=== PATIENT | female | born 1965 | race Caucasian/White ===

== ENCOUNTER 2019-08-20 17:11 | Emergency (ER) | payer OTHER, SELFPAY ==
--- NOTE | ~2019-08-20 | XR_ITS ---
EXAMINATION: XR chest 2V 08/20/2019 17:48 INDICATION: Chest pain. COPD. PROCEDURE: 2 view chest COMPARISON: Comparison to multiple prior studies sequentially, with oldest reviewed study dated 08/02. FINDINGS: The lungs are clear. The cardiomediastinal silhouette is within normal limits. There are no pleural effusions. There is no pneumothorax suspected. IMPRESSION: 1: NO ACUTE CARDIOPULMONARY DISEASE. Reviewed, dictated and finalized at location A.
[2019-08-20 17:24] VITALS: BP 151/84; PULSE 89; RESP 89; TEMP 37.6; O2SAT 97
--- NOTE | 2019-08-20 17:35 | ED.URI ---
HPI - URI/Sore Throat General Chief Complaint: Upper Respiratory Infection Stated Complaint: CP/SOB Time Seen by Provider: 08/20/19 17:35 Source: patient and RN notes reviewed History of Present Illness HPI Narrative: Patient is a 54-year-old female that presents the urgent care with complaints of acute on chronic shortness of breath. Patient states that she typically gets these symptoms when the weather changes . Patient states that she was given a steroid taper from her PCP recently and the symptoms did not fully go away . States that she was on a 10-day taper and just recently completed the medication. Patient does have a chronic cough but states that she feels this 1 might be different . Patient also reports of intermittent shortness of breath which is not new for her considering her past history of asthma and COPD. Patient states that her PCP sent her to urgent care for follow-up. Patient is currently denying any chest pain. Patient does not have any acute distress noted whatsoever. Patient is not dyspneic or short of breath on assessment. Patient denies any recent exposure to known coronavirus patient and has not currently been out of the country or traveled within the last 2 weeks. Patient aware of the plan of care. Related Data Home Medications Medication Instructions Recorded Confirmed Prilosec 08/20/19 Symbicort 08/20/19 albuterol sulfate 08/20/19 clonazepam 08/20/19 ipratropium bromide 08/20/19 valsartan 08/20/19 Allergies Allergy/AdvReac Type Severity Reaction Status Date / Time fluticasone Allergy Mild HIVES Verified 08/20/19 17:31 salmeterol Allergy Mild HIVES Verified 08/20/19 17:31 Sulfa (Sulfonamide Allergy Mild hives Verified 08/20/19 17:31 Antibiotics) Review of Systems Review of Systems: Narrative: CONSTITUTIONAL: Denies fever, chills, or sweats. EYES: Denies visual changes, redness, or discharge. ENT: Denies rhinorrhea, congestion, sore throat, or otalgia. CARDIOVASCULAR: Denies chest pain, palpitations, or edema. RESPIRATORY: Reports of acute on chronic dyspnea and intermittent cough GASTROINTESTINAL: Denies abdominal pain, nausea, vomiting, or diarrhea. GENITOURINARY: Denies dysuria or hematuria. SKIN: Denies rash or itching. MUSCULOSKELETAL: Denies back pain, joint pain, or myalgia. NEUROLOGIC: Denies headache, numbness, or weakness. All other systems reviewed are negative, except as documented in HPI. PMFSH Social History Social History Gender identity (if verbalized by the patient): Female Comments At the time of my signature, I reviewed and agree with the nursing past medical, surgical, social, and family history. There is no relevant family history pertinent to the patient complaint. Exam Narrative: Exam Narrative: GENERAL: This is a well-nourished, well-developed patient, in no apparent distress. HEAD: normocephalic, atraumatic. EYES: PERRL. Sclera clear/white. Vision is grossly intact. EARS: External ears normal NOSE: External nose normal with no obvious nasal discharge, nares without redness, no rhinorrhea. THROAT: Mucous membranes moist, posterior pharynx clear. NECK: Neck supple CARDIOVASCULAR: Regular rate and rhythm without murmurs, gallops, or rubs. RESPIRATORY: Clear to auscultation. Diminished throughout without any advantageous sounds SKIN: warm, intact with no suspicious lesions or rash, good texture and turgor. NEURO: awake, alert, and oriented to person, place and time. There were no obvious focal neurologic abnormalities. EXTREMITIES: No clubbing, cyanosis, or edema. Course Vital Signs Vital signs: Vital Signs Temperature 99.7 F H 08/20/19 17:24 Pulse Rate 89 08/20/19 17:24 Respiratory Rate 89 H 08/20/19 17:24 Blood Pressure 151/84 H 08/20/19 17:24 Pulse Oximetry 97 08/20/19 17:24 Temperature 99.7 F H 08/20/19 17:24 Pulse Rate 89 08/20/19 17:24 Respiratory Rate 89 H 08/20/19 17:24 Blood Pressure 151/84 H 08/19
== END 2019-08-20 18:00 | disposition home or self-care (01) ==
PROVIDERS: Emergency Provider Nurse Practitioner Family
DX: J44.9 Chronic obstructive pulmonary disease, unspecified (principal); I10 Essential (primary) hypertension; F41.9 Anxiety disorder, unspecified
CPT/HCPCS: 71046; 99213; G0463

== ENCOUNTER 2019-10-01 12:31 | Emergency (ER) | payer OTHER, SELFPAY ==
--- NOTE | ~2019-10-01 | XR_ITS ---
EXAMINATION: XR chest 1V portable DATE: 10/01/2019 13:55 INDICATION: Shortness of breath. TECHNIQUE: A single frontal view of the chest was obtained. COMPARISON: Chest 2 views 08/20/2019 FINDINGS: The chest demonstrates clear lungs without pneumonia, pleural effusion, or pneumothorax. Th e heart size is normal. IMPRESSION: 1. No acute cardiopulmonary disease. Reviewed, dictated and finalized at location E.
--- NOTE | ~2019-10-01 | US_ITS ---
US right upper quadrant DATE: 10/01/2019 13:24 INDICATION: Right upper quadrant abdominal pain, nausea, vomiting TECHNIQUE: Real-time imaging of liver, pancreas, gallbladder areas COMPARISON: None FINDINGS: The pancreas is partially obscured by bowel gas. The pancreatic head, neck and proximal bod y appear normal. No hepatic space occupying mass lesion. Normal hepatopedal portal venous flow direction. No gallstones or gallbladder wall thickening or abnormal pericholecystic fluid collection. Negative sonographic Pittman's sign. The common bile duct measures 4.4 to 5.5 mm, within normal limits. IMPRESSION: Pancreas partially obscured; otherwise negative Reviewed, dictated and finalized at Location A. Reviewed, dictated and finalized at location A.
--- NOTE | ~2019-10-01 | CT_ITS ---
EXAMINATION: CTA chest PE protocol DATE: 10/01/2019 15:34 INDICATION: Shortness of breath and chest pain for 8 days. Cough. TECHNIQUE: Computed tomography angiography (CTA) of the chest was performed with 100 mL Omnipaque-350 intravenous contrast timed to evaluate the pulmonary arteries. Coronal maximum intensity projection 3D-reconstructions were created by the technologist. Automated exposure control and iterative reconst ruction technique were employed. Exam dose: 333.76 mGy-cm total exam DLP. COMPARISON: 10/01/2019 portable AP chest FINDINGS: There is diagnostic contrast enhancement of the pulmonary arteries and no evidence of pulmo nary embolism. No thoracic aortic aneurysm or dissection. No hilar or mediastinal mass lesion or lymphadenopathy. Normal heart size. No pericardial or pleural effusion. Mild emphysematous changes are noted in the lungs. No pulmonary infiltrate or consolidation or suspic ious pulmonary mass lesion is evident. No pneumothorax. Normal adrenal glands. Included upper abdominal structures are unremarkable. Bilateral breast implants are noted, some peripheral calcifications. IMPRESSION: No evidence of pulmonary embolism Mild emphysema Reviewed, dictated and finalized at Location A. Reviewed, dictated and finalized at location A.
[2019-10-01 12:34] VITALS: BP 157/108; PULSE 114; RESP 25; TEMP 37.2; O2SAT 97
[2019-10-01 12:47] VITALS: PULSE 90
--- NOTE | 2019-10-01 12:56 | ECG_ITS ---
Measurements Intervals [place] Rate: 93 P: 75 WI: 154 QRS: 32 QRSD: 66 T: 57 QT: 330 QTc: 411 Interpretive Statements SINUS RHYTHM RSR' IN V1 OR V2, PROBABLY NORMAL VARIANT BASELINE ARTIFACT- I, III, AVL NORMAL ECG Electronically Signed On 10-01-2019 13:04:44 CDT by Lele Abreu D.O.
--- NOTE | 2019-10-01 12:57 | ED.SOB ---
HPI - SOB/Dyspnea General Chief Complaint: Shortness of Breath/Dyspnea Stated Complaint: increasing and worsening shortness of breath. Time Seen by Provider: 10/01/19 12:42 Source: patient Mode of arrival: ambulatory Limitations: no limitations History of Present Illness HPI Narrative: This patient is a 54 year old female with history of COPD who presents for evaluation of shortness of breath. She states over the past 2 weeks she has had worsening shortness of breath. She thinks it is different from her COPD. She reports shortness of breath when she lays down and intermittent shortness of breath at rest. She also reports intermittent pain to right lower rib that last minutes. She states this pain is not consistent and it is very sporadic. She denies having any pain now. She also states her ankles appear to be swollen. She called her PCP who told her to come to ER for evaluation of CHF or PE. MD elicited complaint: shortness of breath Related Data Home Medications Medication Instructions Recorded Confirmed budesonide-formoterol [Symbicort] 2 puff INHALATION BID 10/01/19 clonazepam 0.5 mg PO PRN PRN 10/01/19 ipratropium-albuterol 3 ml INHALATION PRN 10/01/19 omeprazole 20 mg PO DAILY 10/01/19 valsartan-hydrochlorothiazide 0.5 tablet PO DAILY 10/01/19 Allergies Allergy/AdvReac Type Severity Reaction Status Date / Time fluticasone Allergy Mild HIVES Verified 10/01/19 12:43 salmeterol Allergy Mild HIVES Verified 10/01/19 12:43 Sulfa (Sulfonamide Allergy Mild hives Verified 10/01/19 12:43 Antibiotics) Review of Systems Review of Systems: All systems reviewed & are unremarkable except as noted in HPI and below Constitutional: Constitutional: Denies chills, Denies fever(s) and Denies weakness Cardiovascular: Cardiovascular: Reports chest pain (right side), Reports rapid heart rate and Denies radiating jaw, neck or arm pain Respiratory: Respiratory: Reports dyspnea and Reports dyspnea on exertion Gastrointestinal: Gastrointestinal: Reports abdominal pain, Reports diarrhea, Reports nausea and Reports vomiting PMFSH Past Medical History Medical History (Updated 10/01/19 @ 16:17 by Geeta Miguel MD) COPD (chronic obstructive pulmonary disease) Hypertension Surgical History Surgical History (Updated 10/01/19 @ 16:11 by Geeta Miguel MD) H/O sinus surgery Social History Social History (Updated 10/01/19 @ 16:11 by Geeta Miguel MD) Additional smoking assessment comments: 2 cigarettes per month Substance use: never Gender identity (if verbalized by the patient): Female Exam Narrative: Exam Narrative: GENERAL: Well-appearing, well-nourished, and in no acute distress. HEAD: Normocephalic, atraumatic EYES: PERRLA and EOMI, conjunctiva clear without discharge THROAT:Mucous membranes moist, Oropharynx normal without erythema, exudate, peritonsillar swelling or fluctuance NECK: Supple, without lymphadenopathy or mass RESPIRATORY: No respiratory distress, Airway patent, Respirations non-labored, Clear to auscultation without rales, rhonchi or wheeze HEART: Regular rate and rhythm. No murmur heard. Normal peripheral pulses. ABDOMEN: Soft, RUQ tenderness, nondistended, normal active bowel sounds. No masses. No rebound or guarding, No organomegaly. EXTREMITIES: No edema, normal strength with full range of motion. SKIN: Warm, dry, normal color without rash NEURO: Alert and oriented x3. CN 2-12 grossly intact. No focal deficits. PSYCH: Normal mood and affect. Course Reevaluation(s) Reevaluation #1: Patient has no complaints now. She states she feels better here than when she feels at home. I discussed labs and imaging are unremarkable. She will follow up with PCP. Date: 10/01/19 Time: 16:15 Vital Signs Vital signs: Vital Signs Temperature 99 F 10/01/19 12:34 Pulse Rate 114 H 10/01/19 12:34 Respiratory Rate 25 H 10/01/19 12:34 Blood Pressure 157/108 H 10/01/19 12:3
[2019-10-01 13:11] LABS: Basophils Absolute Auto 0.1 K/mm3 (0.0-0.1); Basophils Percent Auto 0.8 % (0.2-1.2); Eosinophils Absolute Auto 0.1 K/mm3 (0-0.3); Hemoglobin 12.9 g/dL (12.0-15.0); Immature Granulocyte Absolute 0.05 K/mm3 (0.00-0.031); Immature Granulocyte Percent A 0.8 % (0-0.5); Lymphocytes Absolute Auto 1.65 K/mm3 (0.9-3.2); Mean Corpuscular HGB Conc 33.9 g/dl (32-36); Mean Corpuscular Hemoglobin 33.5 pg (26-34); Mean Corpuscular Volume 98.7 fl (80-100); Mean Platelet Volume 9.7 fl (7.4-10.4); Monocytes Absolute Auto 0.7 K/mm3 (0.1-0.6); Monocytes Percent Auto 11.7 % (2.6-8.5); Neutrophils Absolute Auto 3.7 K/mm3 (1.3-6.7); Neutrophils Percent Auto 58.7 % (45.5-73.1); Platelet Count Result 174 k/mm3 (150-375); Red Blood Count 3.85 M/mm3 (4.2-5.4); Red Cell Distribution Width 15.3 % (11.5-14.5); White Blood Count 6.4 K/mm3 (4.5-10.0)
[2019-10-01 13:20] LABS: INR 0.9
[2019-10-01 13:21] LABS: Partial Thromboplastin Time 23.7 SECONDS (22.3-36.8)
[2019-10-01 13:23] LABS: Alanine Aminotransferase 20 U/L (4-35); Albumin Level 4.2 g/dL (3.5-5.1); Alkaline Phosphatase 76 U/L (38-126); Aspartate Amino Transferase 48 U/L (14-36); Bilirubin,Total 0.8 mg/dL (0.2-1.3); Lipase 135 U/L (23-300)
[2019-10-01 13:26] LABS: Blood Urea Nitrogen 6 mg/dL (7-17); Calcium 8.8 mg/dL (8.4-10.2); Carbon Dioxide 24 mmol/L (22-30); Chloride 105 mmol/L (98-107); Estimated CRCL calculation 64 ml/min; Estimated Glomerular Filt Rate > 60; Glucose 105 mg/dL (65-105); Potassium 3.4 mmol/L (3.4-5.0); Sodium 136 mmol/L (137-145)
[2019-10-01 13:38] LABS: NT Pro B Type Natriuretic Pept 243 PG/ML (5-100); Troponin I < 0.012 ng/mL (0.000-0.034)
[2019-10-01 13:54] LABS: Alveolar/Arterial O2 Gradient 29.1 mmHg; Base Excess ABG 1.6 mEq/l (+/-2.0); Carboxyhemoglobin 2.4 % THb (0-2.0); Device ROOM AIR; Fractional Inspired Oxygen 21 %; HCO3 ABG 24.4 mEq/l (22.0-26.0); Methemoglobin ABG 0.1 %THb (0-1.5); Oxygen Content ABG 17.2 %vol (16.0-22.0); Oxygen Saturation ABG 96.8 % (95.0-100.0); Oxyhemoglobin 93.3 % THb (90.0-100.0); PCO2 ABG 32.9 mmHg (35.0-45.0); PO2 ABG 81.2 mmHg (80.0-100.0); PO2 FiO2 Ratio Arterial Blood 3.87 %; Reduced Hemoglobin 4.2 %THb (0-5.0); Site Drawn RIGHT BRACHIAL; Total Hemoglobin 13.1 g/dL (12.0-18.0); pH ABG 7.488 (7.350-7.450)
[2019-10-01 14:36] VITALS: BP 135/91; PULSE 87; RESP 18; O2SAT 95
[2019-10-01 16:16] VITALS: BP 132/95; PULSE 84; RESP 18; O2SAT 98
== END 2019-10-01 16:46 | disposition home or self-care (01) ==
PROVIDERS: Emergency Provider General Practice
DX: J43.9 Emphysema, unspecified (principal); I10 Essential (primary) hypertension; F17.210 Nicotine dependence, cigarettes, uncomplicated
CPT/HCPCS: 36415; 36600; 71045; 71275; 76705; 80048; 80076; 82375; 82805; 83050; 83690; 83880; 84484; 85025; 85610; 85730; 93005; 99284; Q9967

== ENCOUNTER 2019-12-29 16:08 | Observation (INO) | payer OTHER, SELFPAY ==
[2019-12-29] VITALS (22 sets, daily range): BP systolic 123–157; BP diastolic 69–94; PULSE 84–104; RESP 15–27; TEMP 36.9–37.3; O2SAT 94–99; BMI 24.3
--- NOTE | ~2019-12-29 | MR_ITS ---
EXAMINATION: MR brain/brain stem wo/w con EXAM DATE: 12/30/2019 15:07 INDICATION: Dizziness, weakness. TECHNIQUE: Magnetic resonance imaging (MRI) of the brain/brain stem obtained without contrast. Sagit corby T1, axial diffusion, gradient echo (T2*), T1, T2, FLAIR sequences obtained. Patient was then inj ected with 14 cc intravenous Multihance contrast. Axial and coronal postcontrast T1 weighted sequence s obtained. There is no prior study for comparison. Correlation was made with head CT from yesterday . FINDINGS: There are no areas of restricted diffusion to suggest acute infarction. There is no acute hemorrhage seen on the T2*, a hemosiderin sensitive sequence. No intraparenchymal brain mass. The ve ntricles are normal in size. There are no extra-axial collections. Flow voids are seen in the cereb ral arteries on the T2-weighted sequences consistent with their expected patency. The orbits are unr emarkable. Soft tissue is unremarkable. IMPRESSION: 1. Unremarkable brain MRI examination. Reviewed, dictated and finalized at location B.
--- NOTE | ~2019-12-29 | XR_ITS ---
EXAMINATION: XR chest 1V portable DATE: 12/29/2019 17:45 INDICATION: COPD/asthma presenting with weakness, dizziness, chills and nausea. TECHNIQUE: frontal view of the chest was obtained. COMPARISON: Chest radiograph and CT dated 10/01/2019 FINDINGS: The lungs remain clear with no focal airspace opacities, pulmonary edema, pleural effusion or pneumot horax. The cardiomediastinal silhouette is normal. Bilateral breast implants. IMPRESSION: 1. No acute cardiopulmonary disease. Reviewed, dictated and finalized at location A.
--- NOTE | ~2019-12-29 | CT_ITS ---
EXAMINATION: CT brain wo con INDICATION: Dizziness and weakness COMPARISON: October 30, 2018 TECHNIQUE: Standard unenhanced head CT. The dose-length product (DLP) was 681.00 mGy-cm. The mA was a djusted according to patient size. Iterative reconstruction technique was employed. FINDINGS: There is no intracranial hemorrhage, acute infarction, or abnormal mass lesion. The ventric les are normal. There is no abnormal mass effect or midline shift. The roman-white matter differentiat ion is normal. The basal cisterns are patent. The orbits are normal. There is mild mucosal thickening of the paranasal sinuses. IMPRESSION: 1. No acute intracranial abnormality. Reviewed, dictated and finalized at location A.
--- NOTE | 2019-12-29 16:07 | ED.GENADULT ---
HPI - General Adult General Chief complaint: Dizziness Stated complaint: MULTIPLE C/O Source: patient and EMS Mode of arrival: EMS Limitations: no limitations History of Present Illness HPI narrative: Patient is a 54-year-old female with a history of COPD, asthma, hypertension who presents for evaluation of various complaints including dizziness, weakness, myalgias and chills. Patient denies any current chest pain or abdominal pain. Pt states she had chest pain for EMS, but not here currently. No nausea or vomiting. She reports some intermittent shortness of breath denies any at the time of assessment. She reports she has had a cough but this is chronic for her. She denies any worsening cough, sputum production, hemoptysis. She has had episodes of dizziness with a spinning sensation No recent sick contacts. Patient states she has mostly been quarantining at home. She denies palpitations or lower extremity edema. Related Data Home Medications Medication Instructions Recorded Confirmed budesonide-formoterol [Symbicort] 2 puff INHALATION BID 10/01/19 clonazepam 0.5 mg PO PRN PRN 10/01/19 ipratropium-albuterol 3 ml INHALATION PRN 10/01/19 omeprazole 20 mg PO DAILY 10/01/19 valsartan-hydrochlorothiazide 0.5 tablet PO DAILY 10/01/19 Allergies Allergy/AdvReac Type Severity Reaction Status Date / Time fluticasone Allergy Mild HIVES Verified 10/01/19 12:43 salmeterol Allergy Mild HIVES Verified 10/01/19 12:43 Sulfa (Sulfonamide Allergy Mild hives Verified 10/01/19 12:43 Antibiotics) Review of Systems Review of Systems: Narrative: CONSTITUTIONAL: Denies fever, reports chills EYES: Denies visual changes, redness, or discharge. ENT: Denies rhinorrhea, congestion, sore throat, or otalgia. CARDIOVASCULAR: Denies current chest pain, palpitations, or edema. RESPIRATORY: Reports chronic cough, denies worsening shortness of breath GASTROINTESTINAL: Denies abdominal pain, nausea, vomiting, or diarrhea. GENITOURINARY: Denies dysuria or hematuria. SKIN: Denies rash or itching. MUSCULOSKELETAL: Denies back pain, reports arthralgias and myalgias NEUROLOGIC: Denies headache, numbness, or weakness. PSYCHIATRIC: History of anxiety [facility] Past Medical History Medical History (Updated 12/29/19 @ 19:56 by Suha Chavis MD) Anxiety Asthma Bronchitis COPD (chronic obstructive pulmonary disease) Hypertension Surgical History Surgical History (Updated 10/01/19 @ 16:11 by Geeta Miguel MD) H/O sinus surgery Social History Social History Additional smoking assessment comments: 2 cigarettes per month Substance use: never Gender identity (if verbalized by the patient): Female Exam Narrative: Exam Narrative: GENERAL: Awake, alert, conversant HEAD: Normocephalic, atraumatic. EYES: PERRLA and EOMI. ENT: Nares clear, no rhinorrhea or epistaxis. Mucous membranes moist. Dental caries. Missing teeth. No abscess. Uvula is midline. No trismus. NECK: Supple. CHEST: No respiratory distress, breathing even and non labored, mild, subtle expiratory wheezing bilaterally lower lobes HEART: Regular rate, sinus rhythm ABDOMEN:Non distended, non tender EXTREMITIES: Normal range of motion. No edema. SKIN: Warm, dry, no rash. NEURO:No focal deficits. Alert and oriented x3. GENERAL: Awake, alert, conversant. Finger to nose intact bilaterally, somewhat slowed on the left. EOMs intact without nystagmus. No facial droop/asymmetry noted bilaterally. Grimace intact. Intact sensation in face. Hearing intact bilaterally. Shoulder shrug intact. Strength 5/5 bilateral upper extremities. Strength 5/5 bilateral lower extremities. Reflexes 2+ patellar. Heel to gr intact bilaterally. Tried to ambulate patient, unable to ambulate due to dizziness. Course Vital Signs Vital signs: Vital Signs Temperature 36.9 C 12/29/19 16:10 Pulse Rate 95 12/29/19 16:10 Respiratory Rate 20
--- NOTE | 2019-12-29 16:10 | ECG_ITS ---
Measurements Intervals [place] Rate: 93 P: 75 [place]: 155 QRS: 26 QRSD: 67 T: 59 QT: 336 QTc: 419 Interpretive Statements SINUS RHYTHM ANTEROSEPTAL INFARCT, AGE INDETERMINATE BASELINE ARTIFACT- I, III, AVR, AVL ABNORMAL ECG Electronically Signed On 12-31-2019 14:30:51 CDT by Lele Abreu D.O.
[2019-12-29] MEDS: SODIUM CHLORIDE 0.9% IV 1,000 ML 999 ML IV CONT ×2 (16:42→18:25)
[2019-12-29] MEDS: ONDANSETRON INJ 4 MG/2 ML VIAL IV PUSH (16:42)
[2019-12-29 16:48] LABS: Basophils Absolute Auto 0.1 K/mm3 (0.0-0.1); Basophils Percent Auto 1.1 % (0.2-1.2); Eosinophils Absolute Auto 0.1 K/mm3 (0-0.3); Eosinophils Percent Auto 0.9 % (0-4.4); Hematocrit 41.9 % (37.0-47.0); Hemoglobin 14.8 g/dL (12.0-15.0); Immature Granulocyte Absolute 0.02 K/mm3 (0.00-0.031); Immature Granulocyte Percent A 0.4 % (0-0.5); Lymphocytes Absolute Auto 1.82 K/mm3 (0.9-3.2); Lymphocytes Percent Auto 32.6 % (18.3-44.2); Mean Corpuscular HGB Conc 35.3 g/dl (32-36); Mean Corpuscular Hemoglobin 34.3 pg (26-34); Mean Corpuscular Volume 97.2 fl (80-100); Mean Platelet Volume 9.1 fl (7.4-10.4); Monocytes Absolute Auto 0.6 K/mm3 (0.1-0.6); Neutrophils Absolute Auto 3.1 K/mm3 (1.3-6.7); Platelet Count Result 293 k/mm3 (150-375); Red Blood Count 4.31 M/mm3 (4.2-5.4); Red Cell Distribution Width 13.2 % (11.5-14.5); White Blood Count 5.6 K/mm3 (4.5-10.0)
[2019-12-29 16:59] LABS: Prothrombin Time 13.2 Seconds (11.1-14.7)
[2019-12-29] MEDS: MECLIZINE HCL 25 MG TABLET PO (16:59)
[2019-12-29 17:02] LABS: D Dimer 0.28 ug/mL (<0.48)
[2019-12-29 17:05] LABS: Alanine Aminotransferase 32 U/L (4-35); Albumin Level 4.2 g/dL (3.5-5.1); Alkaline Phosphatase 81 U/L (38-126); Anion Gap 11 mmol/L (8-16); Aspartate Amino Transferase 79 U/L (14-36); Bilirubin,Total 0.3 mg/dL (0.2-1.3); Blood Urea Nitrogen 18 mg/dL (7-17); CRP < 0.5 mg/dL (<1.0); Calcium 8.7 mg/dL (8.4-10.2); Carbon Dioxide 24 mmol/L (22-30); Chloride 98 mmol/L (98-107); Estimated CRCL calculation 72 ml/min; Estimated Glomerular Filt Rate > 60; Glucose 99 mg/dL (65-105); Potassium 4.2 mmol/L (3.4-5.0); Sodium 133 mmol/L (137-145)
[2019-12-29 17:12] LABS: Troponin I < 0.012 ng/mL (0.000-0.034)
[2019-12-29 18:12] LABS: Add Urine Microscopic? NO; Appearance Urine Clear (Clear); Bilirubin Urine Negative (Negative); Blood Urine Negative (Negative); Color Urine Straw (Yellow); Glucose Urine UA Negative (Negative); Ketones Urine Negative (Negative); Leukocyte Esterase Ur Negative LEU/UL (Negative); Nitrate Urine Negative (Negative); Protein Urine Negative (Negative); Specific Grav Ur 1.013 (1.001-1.035); Urobilinogen Urine Negative mg/dL (<2.0)
[2019-12-29] MEDS: LORazepam 0.5 MG TABLET PO (18:25)
--- NOTE | 2019-12-29 23:27 | PM.IMHP ---
H&P: HPI History of Present Illness Date/Time: 12/29/19 23:27 Chief complaint: Dizziness Narrative: This is a 54 year old female with history of COPD and HTN who presented to the hospital with two days of dizziness, body aches, chills, and generalized weakness. Her dizziness is worse with any head movement. She denies any double vision or blurry vision. She also denies any decreased hearing or ear ringing. She denies any other focal neurological symptoms. On arrival to the hospital the patient started to develop a dry cough as well as fever. She denies any recent sick contacts. She also denies any chest pain, palpitations, LE swelling, hematuria, dysuria, diarrhea or rectal bleeding. She does report vomiting today. The patient was evaluated in the ER and CT brain was unremarkable. Routine labs were also unremarkable. The patient was treated with meclizine and benzodiazepines but her dizziness continued. Neurology has been consulted and we have been asked to admit the patient to the hospital for her intractable dizziness. The patient was swabbed for COVID-19 in the ER tonight. No other complaints. Review of Systems Review of Systems: All systems reviewed & are unremarkable except as noted in HPI and below PMFSH Past Medical History Medical History Anxiety Anxiety about blushing Asthma Bronchitis COPD (chronic obstructive pulmonary disease) GERD (gastroesophageal reflux disease) Hypertension Surgical History Surgical History H/O sinus surgery Hx of breast implants, bilateral Previous section Family History Family History Father Lung cancer Social History Social History Additional smoking assessment comments: 2 cigarettes per month Substance use: never Gender identity (if verbalized by the patient): Female Meds Home Medications and Allergies Home Medications Medication Instructions Recorded Confirmed Type budesonide-formoterol [Symbicort] 2 puff INHALATION BID 10/01/19 History clonazepam 0.5 mg PO PRN PRN 10/01/19 History ipratropium-albuterol 3 ml INHALATION PRN 10/01/19 History omeprazole 20 mg PO DAILY 10/01/19 History valsartan-hydrochlorothiazide 0.5 tablet PO DAILY 10/01/19 History Allergies Allergy/AdvReac Type Severity Reaction Status Date / Time fluticasone Allergy Mild HIVES Verified 10/01/19 12:43 salmeterol Allergy Mild HIVES Verified 10/01/19 12:43 Sulfa (Sulfonamide Allergy Mild hives Verified 10/01/19 12:43 Antibiotics) Vital Signs Vital Signs - 24 hr 12/29/19 16:10 12/29/19 16:11 12/29/19 16:15 Temperature 36.9 C Pulse Rate 97 94 Respiratory Rate 20 15 Blood Pressure 123/87 123/87 Pulse Oximetry 94 96 97 12/29/19 16:30 12/29/19 16:31 12/29/19 16:45 Temperature Pulse Rate 90 92 92 Respiratory Rate 22 H 21 H 22 H Blood Pressure 124/91 H Pulse Oximetry 97 97 97 12/29/19 17:00 12/29/19 17:01 12/29/19 17:15 Temperature Pulse Rate 85 84 87 Respiratory Rate 22 H 19 24 H Blood Pressure 126/81 Pulse Oximetry 96 98 96 12/29/19 17:43 12/29/19 17:45 12/29/19 17:46 Temperature Pulse Rate Respiratory Rate Blood Pressure 131/82 Pulse Oximetry 99 99 99 12/29/19 18:00 12/29/19 18:01 12/29/19 18:15 Temperature Pulse Rate 101 H 96 92 Respiratory Rate 27 H 24 H 23 H Blood Pressure 139/75 Pulse Oximetry 96 97 98 12/29/19 18:30 12/29/19 18:31 12/29/19 18:45 Temperature Pulse Rate 92 94 98 Respiratory Rate 22 H 20 20 Blood Pressure 133/84 Pulse Oximetry 97 98 12/29/19 19:00 12/29/19 19:30 12/29/19 20:15 Temperature Pulse Rate 93 93 99 Respiratory Rate 26 H 24 H 27 H Blood Pressure 140/85 134/75 133/69 Pulse Oximetry 97 96 96 12/29/19 21:39 Temperature 37.3 C Pu
[2019-12-30] VITALS (9 sets, daily range): BP systolic 121–152; BP diastolic 64–91; PULSE 74–109; RESP 16–22; TEMP 36.6–37.1; O2SAT 95–96; BMI 24.3
[2019-12-30] MEDS: ALBUTEROL SULFATE (*SP) AEROSOL 1 PUFF 2 PUFF INHALATION ×3 (00:30→12:05)
[2019-12-30] MEDS: SODIUM CHLORIDE 0.45% 1,000 ML 100 ML IV CONT ×3 (00:52→22:31)
--- NOTE | 2019-12-30 01:47 | ADMGEN ---
This patient, Chary Rodriguez, was admitted to [facility] Surg Room 328-01. Patient/family oriented to hospital policies and general routines including ID bracelet, bed and alarms, visiting hours, pain management, procedures, bathroom and other care routines, personal items, smoking policy, room service/diet, and visiting hours. Valuables list has been completed. Information on how to activate the Rapid Response Team has been discussed. Patient/Family are encouraged to report perceived risks to care and to ask questions if they do not understand what they are told or what they should do.
[2019-12-30] MEDS: ACETAMINOPHEN 325 MG TABLET 650 MG PO ×2 (02:38→17:19)
[2019-12-30 06:23] LABS: Hemoglobin 13.7 g/dL (12.0-15.0); Mean Corpuscular HGB Conc 35.1 g/dl (32-36); Mean Corpuscular Volume 96.8 fl (80-100); Platelet Count Result 228 k/mm3 (150-375); Red Blood Count 4.03 M/mm3 (4.2-5.4); Red Cell Distribution Width 12.9 % (11.5-14.5); White Blood Count 5.6 K/mm3 (4.5-10.0)
[2019-12-30 06:24] LABS: Basophils Absolute Auto 0.1 K/mm3 (0.0-0.1); Basophils Percent Auto 1.1 % (0.2-1.2); Eosinophils Absolute Auto 0.2 K/mm3 (0-0.3); Eosinophils Percent Auto 2.7 % (0-4.4); Immature Granulocyte Absolute 0.02 K/mm3 (0.00-0.031); Immature Granulocyte Percent A 0.4 % (0-0.5); Lymphocytes Absolute Auto 1.91 K/mm3 (0.9-3.2); Lymphocytes Percent Auto 33.9 % (18.3-44.2); Mean Platelet Volume 8.8 fl (7.4-10.4); Monocytes Absolute Auto 0.5 K/mm3 (0.1-0.6); Monocytes Percent Auto 9.6 % (2.6-8.5); Neutrophils Percent Auto 52.3 % (45.5-73.1)
[2019-12-30 07:19] LABS: Anion Gap 5 mmol/L (8-16); Blood Urea Nitrogen 10 mg/dL (7-17); Calcium 8.1 mg/dL (8.4-10.2); Carbon Dioxide 27 mmol/L (22-30); Chloride 103 mmol/L (98-107); Estimated CRCL calculation 75 ml/min; Estimated Glomerular Filt Rate > 60; Glucose 96 mg/dL (65-105); Magnesium 1.5 mg/dL (1.6-2.3); Potassium 3.6 mmol/L (3.4-5.0); Sodium 135 mmol/L (137-145)
[2019-12-30] MEDS: MAGNESIUM SULF 2 GM/WATER 50ML 2 GM/50 ML BAG IVPB (09:37)
[2019-12-30] MEDS: guaiFENesin/DEXTROMETHORPHAN 10 ML UDC PO (09:39)
[2019-12-30] MEDS: PANTOPRAZOLE SOD SESQUIHYDRATE 20 MG TAB PO (09:40)
[2019-12-30] MEDS: hydroCHLOROthiazide 6.25 MG TABLET PO (09:40)
[2019-12-30] MEDS: VALSARTAN 80 MG TABLET PO (09:40)
[2019-12-30] MEDS: MAGNESIUM OXIDE 400 MG TABLET PO (09:43)
--- NOTE | 2019-12-30 10:21 | WPDNEURCNPN ---
Assessment and Plan Assessment and plan (1) GERD (gastroesophageal reflux disease): Code(s): K21.9 - Gastro-esophageal reflux disease without esophagitis Status: Acute (2) Hypertension: Qualifiers: Hypertension type: unspecified Qualified Code(s): I10 - Essential (primary) hypertension Code(s): I10 - Essential (primary) hypertension Status: Chronic (3) Suspected COVID-19 virus infection: Code(s): Z20.828 - Contact with and (suspected) exposure to other viral communicable diseases Status: Acute (4) COPD (chronic obstructive pulmonary disease): Qualifiers: COPD type: unspecified COPD Qualified Code(s): J44.9 - Chronic obstructive pulmonary disease, unspecified Code(s): J44.9 - Chronic obstructive pulmonary disease, unspecified Status: Chronic (5) Dizziness: Code(s): R42 - Dizziness and giddiness Status: Acute Additional Plan considering the generalized symptomatology patient will be treated symptomatically while we are obtaining the MRI of the brain in addition to the B12 folate level and T4 in the meantime she will maintain ordered droplet isolation if the MRI is suggestive of any brain stem involvement then we will pursue further Consult date: 12/30/19 Time Seen: 10:21 HPI: Chary Rodriguez is a 54 year old femaleHas been admitted to the hospital with history of and hypertension for the complains of generalized aches and pain with the weakness and dizziness with no associated blurred vision or double vision or hearing problems 78 Thatch Rodriguez was noted to have dry cough but she has no other associated chest discomfort on initial evaluation in the emergency room her CT scan of the head was normal routine lab studies were negative she has been admitted with the order of meclizine and benzodiazepine and we were consulted for the complaints of intractable dizziness Review of Systems Review of Systems: Narrative: review of system is particularly consistent with the history of anxiety in addition to bronchial asthma COPD GERD and hypertension she does have a history of breast implants bilaterally PMFSH Past Medical History Medical History Anxiety Anxiety about blushing Asthma Bronchitis COPD (chronic obstructive pulmonary disease) GERD (gastroesophageal reflux disease) Hypertension Surgical History Surgical History H/O sinus surgery Hx of breast implants, bilateral Previous section Family History Family History Father Lung cancer Mother Kidney failure Social History Social History Years smoked: 35 Smoking status: Current some day smoker Tobacco type: cigarettes Additional smoking assessment comments: 5 cigarettes per month NOT per day Alcohol intake: current Drinks per week: 3 Substance use: former Substance use type: marijuana Other substance usage details: when she was 13 Gender identity (if verbalized by the patient): Female Spiritual care concerns: No Meds Home Medications and Allergies Home Medications Medication Instructions Recorded Confirmed Type budesonide-formoterol [Symbicort] 2 puff INHALATION BID 10/01/19 12/30/19 History clonazepam 0.5 mg PO BID PRN 10/01/19 12/30/19 History ipratropium-albuterol 3 ml INHALATION Q4-6H PRN 10/01/19 12/30/19 History omeprazole 20 mg PO DAILY 10/01/19 12/30/19 History valsartan-hydrochlorothiazide 0.5 tablet PO DAILY 10/01/19 12/30/19 History albuterol sulfate 2 inh INHALATION QAM PRN 12/30/19 12/30/19 History calcium carbonate-mag hydroxid 2 tablet PO Q6H PRN 12/30/19 12/30/19 History [Rolaids] ibuprofen 200 mg PO Q8H PRN 12/30/19 12/30/19 History pantoprazole 20 mg PO DAILY 12/30/19 12/30/19 History Allergies Allergy/AdvReac Type Severity Re
[2019-12-30] MEDS: POTASSIUM CHLORIDE 20 MEQ PACKET (FOR LIQUID) 40 MEQ PO (10:32)
[2019-12-30] MEDS: clonazePAM 0.5 MG TABLET PO ×2 (12:01→21:15)
[2019-12-30 12:18] LABS: T4 Thyroxine 6.91 ug/dL (5.53-11.0)
--- NOTE | 2019-12-30 13:29 | PCDIET ---
Pt being seen due to MST score of 2 today for poor appetite and wt loss. Pt with wt loss of five lbs over last week. Pt assessed by RD. Recommend diet change from heart healthy to 4gm Na to allow for a greater amount of healthy fats to aid in weight maintenance.
[2019-12-30 13:59] LABS: SARS-CoV-2 RNA PCR Negative
[2019-12-30 14:03] LABS: Anion Gap 6 mmol/L (8-16); Blood Urea Nitrogen 6 mg/dL (7-17); Calcium 8.8 mg/dL (8.4-10.2); Carbon Dioxide 25 mmol/L (22-30); Chloride 101 mmol/L (98-107); Estimated CRCL calculation 87 ml/min; Estimated Glomerular Filt Rate > 60; Glucose 153 mg/dL (65-105); Magnesium 2.6 mg/dL (1.6-2.3); Potassium 4.3 mmol/L (3.4-5.0); Sodium 132 mmol/L (137-145)
--- NOTE | 2019-12-30 16:39 | PM.IMPN ---
Progress Note: A&P Assessment and Plan (1) Dizziness: Code(s): R42 - Dizziness and giddiness Status: Acute Assessment and Plan: Likely secondary to viral syndrome. Admit for observation. Fall precautions. Continue meclizine as needed. Neurology has been consulted and MRI brain has been ordered. Check electrolytes, TSH w/ reflex T4, VB12 and folate levels. 12/30/19 16:39 patient is a 54-year-old female with history of COPD presented emergency department with a complaint of cough shortness of breath fatigue see also had a complaint of being dizzy which is going on quite sometime and describes as room is moving rather than chest pain palpitation blurry vision fever or chills, initially patient was suspected we have COVID-19 however which is negative, in terms of patient's dizziness CT scan of the head and MRI of the brain sign negative patient was started on meclizine and benzodiazepine patient states her symptoms are improved, currently patient complains of cough and shortness of breath will start the patient on updraft as her COVID-19 is negative, patient is seen by neurologist and further recommendation to follow, the PT OT evaluate the patient. (2) Suspected COVID-19 virus infection: Code(s): Z20.828 - Contact with and (suspected) exposure to other viral communicable diseases Status: Acute Assessment and Plan: Continue droplet isolation. Antipyretics and antitussives as needed. Continue supportive care. Dexamethasone IV daily. COVID-19 results pending. (3) COPD (chronic obstructive pulmonary disease): Qualifiers: COPD type: unspecified COPD Qualified Code(s): J44.9 - Chronic obstructive pulmonary disease, unspecified Code(s): J44.9 - Chronic obstructive pulmonary disease, unspecified Status: Chronic Assessment and Plan: Albuterol MDI scheduled and PRN. Continue steroid therapy. RT assess and treat. (4) Hypertension: Qualifiers: Hypertension type: unspecified Qualified Code(s): I10 - Essential (primary) hypertension Code(s): I10 - Essential (primary) hypertension Status: Chronic Assessment and Plan: Monitor blood pressure. [place] Valsartan/HCTZ PO. (5) GERD (gastroesophageal reflux disease): Code(s): K21.9 - Gastro-esophageal reflux disease without esophagitis Status: Acute Assessment and Plan: Continue PPI therapy (6) Anxiety: Code(s): F41.9 - Anxiety disorder, unspecified Status: Acute Assessment and Plan: Continue Clonazepam. Subjective Date/time seen: 12/30/19 16:39 patient is a 54-year-old female with history of COPD presented emergency department with a complaint of cough shortness of breath fatigue see also had a complaint of being dizzy which is going on quite sometime and describes as room is moving rather than chest pain palpitation blurry vision fever or chills, initially patient was suspected we have COVID-19 however which is negative, in terms of patient's dizziness CT scan of the head and MRI of the brain sign negative patient was started on meclizine and benzodiazepine patient states her symptoms are improved, currently patient complains of cough and shortness of breath will start the patient on updraft as her COVID-19 is negative, patient is seen by neurologist and further recommendation to follow, the PT OT evaluate the patient. Review of Systems Review of Systems: All systems reviewed & are unremarkable except as noted in HPI and below Exam Const: General: comfortable and no acute distress HENMT: General nose exam: Normal nares present Mouth: Yes moist mucous membranes Eyes: General: appearance normal, both eyes and all related structures Sclera: sclerae normal Neck: Neck: supple Resp: Other: bilateral fair air entry with rhonchi and wheezing Cardio: Rate: regular rate Rhythm: regular rhythm GI: Auscultation: normal bowel sounds Skin: General sk
[2019-12-30] MEDS: ALBUTEROL SULFATE NEB 2.5 MG/0.5 ML INH INHALATION (20:58)
[2019-12-30] MEDS: IPRATROPIUM BR 0.02% INH SOLN 0.5 MG/2.5 ML VIAL INHALATION (20:58)
[2019-12-31] VITALS (9 sets, daily range): BP systolic 121; BP diastolic 70; PULSE 73–99; RESP 18–20; TEMP 36.7; O2SAT 96
[2019-12-31] MEDS: ALBUTEROL SULFATE NEB 2.5 MG/0.5 ML INH INHALATION ×2 (01:13→09:27)
[2019-12-31] MEDS: IPRATROPIUM BR 0.02% INH SOLN 0.5 MG/2.5 ML VIAL INHALATION ×2 (01:14→09:25)
[2019-12-31] MEDS: ACETAMINOPHEN 325 MG TABLET 650 MG PO (07:31)
[2019-12-31] MEDS: PANTOPRAZOLE SOD SESQUIHYDRATE 20 MG TAB PO (08:27)
[2019-12-31] MEDS: hydroCHLOROthiazide 6.25 MG TABLET PO (08:27)
[2019-12-31] MEDS: VALSARTAN 80 MG TABLET PO (08:27)
[2019-12-31] MEDS: MAGNESIUM OXIDE 400 MG TABLET PO (08:27)
[2019-12-31] MEDS: SODIUM CHLORIDE 0.45% 1,000 ML 100 ML IV CONT (09:10)
[2019-12-31] MEDS: DEXAMETHASONE 2 MG TABLET PO (11:17)
--- NOTE | 2019-12-31 13:34 | PCRCNOTE ---
PT. REFUSED BREATHING TX, SHE IS DRESSED AND BEING DISCHARGED. DR. HAWLEY NOTIFIED OF THE REFUSAL
--- NOTE | 2019-12-31 13:37 | PM.DS ---
DS: Admitting Diagnosis Admitting Diagnosis Admitting Diagnosis: Dizziness DS: Discharge Diagnosis Discharge Diagnosis (1) Dizziness: Code(s): R42 - Dizziness and giddiness Status: Acute Assessment and Plan: Likely secondary to viral syndrome. Admit for observation. Fall precautions. Continue meclizine as needed. Neurology has been consulted and MRI brain has been ordered. Check electrolytes, TSH w/ reflex T4, VB12 and folate levels. 12/30/19 16:39 patient is a 54-year-old female with history of COPD presented emergency department with a complaint of cough shortness of breath fatigue see also had a complaint of being dizzy which is going on quite sometime and describes as room is moving rather than chest pain palpitation blurry vision fever or chills, initially patient was suspected we have COVID-19 however which is negative, in terms of patient's dizziness CT scan of the head and MRI of the brain sign negative patient was started on meclizine and benzodiazepine patient states her symptoms are improved, currently patient complains of cough and shortness of breath will start the patient on updraft as her COVID-19 is negative, patient is seen by neurologist and further recommendation to follow, the PT OT evaluate the patient. (2) Suspected COVID-19 virus infection: Code(s): Z20.828 - Contact with and (suspected) exposure to other viral communicable diseases Status: Acute Assessment and Plan: Continue droplet isolation. Antipyretics and antitussives as needed. Continue supportive care. Dexamethasone IV daily. COVID-19 results pending. (3) COPD (chronic obstructive pulmonary disease): Qualifiers: COPD type: unspecified COPD Qualified Code(s): J44.9 - Chronic obstructive pulmonary disease, unspecified Code(s): J44.9 - Chronic obstructive pulmonary disease, unspecified Status: Chronic Assessment and Plan: Albuterol MDI scheduled and PRN. Continue steroid therapy. RT assess and treat. (4) Hypertension: Qualifiers: Hypertension type: unspecified Qualified Code(s): I10 - Essential (primary) hypertension Code(s): I10 - Essential (primary) hypertension Status: Chronic Assessment and Plan: Monitor blood pressure. Cotninue Valsartan/HCTZ PO. (5) GERD (gastroesophageal reflux disease): Code(s): K21.9 - Gastro-esophageal reflux disease without esophagitis Status: Acute Assessment and Plan: Continue PPI therapy (6) Anxiety: Code(s): F41.9 - Anxiety disorder, unspecified Status: Acute Assessment and Plan: Continue Clonazepam. DS: Summary Hospital Course Reason for hospitalization: Chief complaint: Dizziness Narrative: This is a 54 year old female with history of COPD and HTN who presented to the hospital with two days of dizziness, body aches, chills, and generalized weakness. Her dizziness is worse with any head movement. She denies any double vision or blurry vision. She also denies any decreased hearing or ear ringing. She denies any other focal neurological symptoms. On arrival to the hospital the patient started to develop a dry cough as well as fever. She denies any recent sick contacts. She also denies any chest pain, palpitations, LE swelling, hematuria, dysuria, diarrhea or rectal bleeding. She does report vomiting today. The patient was evaluated in the ER and CT brain was unremarkable. Routine labs were also unremarkable. The patient was treated with meclizine and benzodiazepines but her dizziness continued. Neurology has been consulted and we have been asked to admit the patient to the hospital for her intractable dizziness. The patient was swabbed for COVID-19 in the ER tonight. No other complaints. Hospital Course: patient is a 54-year-old female with history of COPD presented emergency department with a complaint of cough shortness of breath fatigue see also had a complaint
[2020-01-03 10:20] LABS: Red Blood Cell Folate 481 ng/mL RBC (>280)
== END 2019-12-31 14:05 | disposition home or self-care (01) ==
LOC: ANHED 20:12 → ANH3MEDSUR 12-30 02:10 → ANH2MED 01-03 14:54 → ANH3MEDSUR 01-03 14:54
PROVIDERS: Psychiatry & Neurology Neurology; Admitting Provider Family Medicine; Emergency Provider Emergency Medicine; PCP Physician Assistant; Visit Provider Family Medicine
DX: R42 Dizziness and giddiness (principal); Z20.828 Contact with and (suspected) exposure to other viral communicable diseases; J44.9 Chronic obstructive pulmonary disease, unspecified; I10 Essential (primary) hypertension; F41.9 Anxiety disorder, unspecified; K21.9 Gastro-esophageal reflux disease without esophagitis; R06.02 Shortness of breath
CPT/HCPCS: 36415; 70450; 70553; 71045; 80048; 80053; 81003; 82607; 82747; 83735; 84436; 84484; 85025; 85380; 85610; 85730; 86140; 87635; 93005; 94640; 96360; 96361; 96365; 96374; 96375; 97161; 97165; 99285; A9270; A9577; C9803; G0378; G0379; J1100; J2405; J3475; J7030; J8540; U0003

== ENCOUNTER 2021-08-12 10:56 | Emergency (ER) | payer MEDICARE, MEDICAID, SELFPAY ==
[2021-08-12] VITALS (14 sets, daily range): BP systolic 158–162; BP diastolic 87–91; PULSE 89–103; RESP 19–27; TEMP 36.9; O2SAT 95–98
--- NOTE | ~2021-08-12 | XR_ITS ---
EXAMINATION: XR soft tissue neck INDICATION: Neck pain TECHNIQUE: Two views of the neck soft tissues are obtained. COMPARISON: 06/19/2007 FINDINGS: The neck soft tissues are unremarkable. No radiopaque foreign body is identified. There is mild cervical spondylosis. IMPRESSION: 1. Unremarkable neck soft tissue radiographs. Reviewed, dictated and finalized at location A.
[2021-08-12] MEDS: KETOROLAC 15 MG/ML VIAL (*BKC) IV PUSH (12:22)
[2021-08-12] MEDS: LORazepam INJ (*CRX) 2 MG/ML VIAL 0.5 MG IV PUSH (12:22)
[2021-08-12 12:30] LABS: Basophils Absolute Auto 0.1 K/mm3 (0.0-0.1); Eosinophils Percent Auto 0.4 % (0-4.4); Hematocrit 40.8 % (37.0-47.0); Hemoglobin 13.9 g/dL (12.0-15.0); Immature Granulocyte Absolute 0.05 K/mm3 (0.00-0.031); Immature Granulocyte Percent A 0.7 % (0-0.5); Lymphocytes Absolute Auto 1.31 K/mm3 (0.9-3.2); Lymphocytes Percent Auto 19.4 % (18.3-44.2); Mean Corpuscular HGB Conc 34.1 g/dl (32-36); Mean Corpuscular Hemoglobin 33.7 pg (26-34); Mean Corpuscular Volume 98.8 fl (80-100); Mean Platelet Volume 8.8 fl (7.4-10.4); Monocytes Absolute Auto 0.6 K/mm3 (0.1-0.6); Monocytes Percent Auto 9.3 % (2.6-8.5); Neutrophils Absolute Auto 4.7 K/mm3 (1.3-6.7); Neutrophils Percent Auto 69.2 % (45.5-73.1); Platelet Count Result 276 k/mm3 (150-375); Red Blood Count 4.13 M/mm3 (4.2-5.4); Red Cell Distribution Width 14.7 % (11.5-14.5); White Blood Count 6.8 K/mm3 (4.5-10.0)
[2021-08-12 12:42] LABS: Alanine Aminotransferase 26 U/L (4-35); Albumin Level 4.2 g/dL (3.5-5.1); Alkaline Phosphatase 118 U/L (38-126); Anion Gap 8 mmol/L (8-16); Aspartate Amino Transferase 77 U/L (14-36); Bilirubin,Total 1.1 mg/dL (0.2-1.3); Blood Urea Nitrogen 8 mg/dL (7-17); Calcium 8.7 mg/dL (8.4-10.2); Carbon Dioxide 23 mmol/L (22-30); Chloride 101 mmol/L (98-107); Estimated CRCL calculation 71 ml/min; Estimated Glomerular Filt Rate > 60; Glucose 86 mg/dL (65-110); Potassium 4.2 mmol/L (3.4-5.0); Sodium 132 mmol/L (137-145)
[2021-08-12 14:06] LABS: Thyroid Stimulating Hormone 0.968 uIU/mL (0.465-4.680)
--- NOTE | 2021-08-12 14:15 | ED.GENADULT ---
HPI - General Adult General Chief complaint: Back Pain/Injury <Fabiola Clement PA-C - Last Filed: 08/12/21 14:24> Stated complaint: neck and back hurt, now have fever <Fabiola Clement PA-C - Last Filed: 08/12/21 14:24> Time Seen by Provider: 08/12/21 11:13 <IVETT Sebastian Last Filed: 08/12/21 14:24> History of Present Illness HPI narrative: Patient is a 56-year-old female with a history of alcohol abuse, COPD, hypertension, anxiety who presents the emergency department with 2 weeks of a lump she noticed on her left lateral neck. She states the lump is painful, and denies any alleviating or exacerbating factors for her pain. She was seen by her primary care doctor last week for the symptoms, who recommended multiple laboratory studies. She did not have the studies done. Patient has multiple other complaints, including anxiety, low back pain for a month, and a temperature of 100 degrees today. Denies urinary symptoms, incontinence or retention of her bowel or bladder. She presents today due to increased symptoms and anxiety. She has a history of alcohol abuse, and reports alcohol use yesterday. No history of withdrawal seizures. <Fabiola Clement PA-C - Last Filed: 08/12/21 14:24> Related Data Allergies/adverse reactions: Allergies Allergy/AdvReac Type Severity Reaction Status Date / Time Sulfa (Sulfonamide Allergy Unknown Verified 08/12/21 12:17 Antibiotics) clindamycin AdvReac Rash Verified 08/12/21 12:17 codeine AdvReac Vomiting Verified 08/12/21 12:17 vancomycin AdvReac Redness of Verified 08/12/21 12:17 Skin <IVETT Sebastian Last Filed: 08/12/21 14:24> Review of Systems Review of Systems: Gen.: Denies fevers or chills Eyes: Denies eye pain or visual change Neck: Reports pain to left neck ENT: Denies congestion Respiratory: Denies shortness of breath or cough CV: Denies chest pain or palpitations GI: Denies abdominal pain nausea, emesis or diarrhea denies burning, urgency, frequency or hematuria Musculoskeletal: Reports low back pain Neuro: Denies numbness, tingling, weakness or focal weakness Skin: Denies rash Except as documented, all other systems reviewed and negative <Fabiola Clement PA-C - Last Filed: 08/12/21 14:24> All systems reviewed & are unremarkable except as noted in HPI and below <Fabiola Clement PA-C - Last Filed: 08/12/21 14:24> Exam Narrative: APPEARANCE: Anxious appearing female Head normocephalic and atraumatic. EYES: PERRLA/EOMI, conjunctivae clear NOSE: No nasal drainage EARS: External ear normal in appearance THROAT: Oropharynx is clear. Mucous membranes are moist. NECK: No masses palpated. No thyromegaly appreciated. Full range of motion of neck without pain. Supple. No adenopathy. RESPIRATORY: Airway patent, respirations nonlabored. Clear to auscultation bilaterally, no rales, rhonchi, wheezing. CARDIOVASCULAR: Regular rate and rhythm without murmurs, rubs, or gallops. ABDOMINAL: Normoactive bowel sounds. Soft, nontender, nondistended. No rebound tenderness or guarding. MUSCULOSKELETAL: Mild tenderness palpation along paraspinal muscles. No CVA tenderness. No midline tenderness. Able to move torso without issues. Extremities are warm and well-perfused. Moves all extremities well. No edema. NEURO: Normal speech. No focal neurologic deficits. SKIN:: Skin is warm and dry. No rashes. PSYCHIATRIC: Normal affect/mood.. <Fabiola Clement PA-C - Last Filed: 08/12/21 14:24> Course PULMONOLOGY PHYSICIAN/PA Physician Supervision 56-year-old female was seen and evaluated by me. She was also seen by the DANIELLE working on my supervision. Patient comes in with a multitude of complaints. She was just seen by her own physician and has orders that are supposed to be performed. That includes lab test. Patient has a history of alcohol abuse. She states she was sober for quite some time but she did admit
== END 2021-08-12 14:42 | disposition home or self-care (01) ==
PROVIDERS: Physician Assistant; Emergency Provider Emergency Medicine; PCP Emergency Medicine
DX: S39.012A Strain of muscle, fascia and tendon of lower back, initial encounter (principal); R22.1 Localized swelling, mass and lump, neck; J44.9 Chronic obstructive pulmonary disease, unspecified; I10 Essential (primary) hypertension; F10.10 Alcohol abuse, uncomplicated; F41.9 Anxiety disorder, unspecified; Y90.9 Presence of alcohol in blood, level not specified; X58.XXXA Exposure to other specified factors, initial encounter
CPT/HCPCS: 36415; 70360; 80053; 84443; 85025; 96374; 96375; 99284; J1885; J2060

== ENCOUNTER 2021-09-10 13:47 | Emergency (ER) | payer MEDICARE, MEDICAID, SELFPAY ==
[2021-09-10] VITALS (8 sets, daily range): BP systolic 114–136; BP diastolic 70–93; PULSE 91–116; RESP 16–22; TEMP 36.8; O2SAT 95–96
--- NOTE | ~2021-09-10 | CT_ITS ---
EXAMINATION: CTA chest PE protocol DATE: 09/10/2021 17:41 INDICATION: elevated d dimer, DIZZINESS TECHNIQUE: Computed tomography angiography (CTA) of the chest was performed with 100 mL Omnipaque-350 intravenous contrast timed to evaluate the pulmonary arteries. Coronal maximum intensity projection 3D-reconstructions were created by the technologist. The dose-length product (DLP) was 234.10 mGy-cm. Automated exposure control and iterative reconstruction technique were employed. COMPARISON: None. FINDINGS: Study quality: Adequate. Pulmonary arteries: No pulmonary emboli detected. Thoracic aorta: Normal. Lung parenchyma and airways: Emphysematous changes. Thoracic inlet, axillae and chest wall: Bilateral breast augmentation. Mediastinum: Normal. Heart and pericardium: Normal. Coronary artery calcifications: Absent. Pleura: Unremarkable. Upper abdomen: Steatosis. Bones: No acute osseous finding. IMPRESSION: No CT evidence of acute pulmonary embolus. Reviewed, dictated and finalized at location K.
--- NOTE | 2021-09-10 14:14 | ECG_ITS ---
Measurements Intervals [place] Rate: 100 P: 82 TX: 155 QRS: 61 QRSD: 89 T: 73 QT: 332 QTc: 428 Interpretive Statements SINUS TACHYCARDIA ANTEROSEPTAL INFARCT, AGE INDETERMINATE ABNORMAL ECG Electronically Signed On 09-10-2021 14:26:20 CDT by Lele Abreu D.O.
[2021-09-10 14:36] LABS: Basophils Absolute Auto 0.1 K/mm3 (0.0-0.1); Eosinophils Absolute Auto 0.1 K/mm3 (0-0.3); Hematocrit 42.9 % (37.0-47.0); Hemoglobin 14.6 g/dL (12.0-15.0); Immature Granulocyte Absolute 0.02 K/mm3 (0.00-0.031); Immature Granulocyte Percent A 0.4 % (0-0.5); Lymphocytes Absolute Auto 2.09 K/mm3 (0.9-3.2); Lymphocytes Percent Auto 41.5 % (18.3-44.2); Mean Corpuscular Hemoglobin 33.4 pg (26-34); Mean Corpuscular Volume 98.2 fl (80-100); Mean Platelet Volume 8.8 fl (7.4-10.4); Monocytes Absolute Auto 0.6 K/mm3 (0.1-0.6); Monocytes Percent Auto 10.9 % (2.6-8.5); Neutrophils Absolute Auto 2.3 K/mm3 (1.3-6.7); Neutrophils Percent Auto 45.2 % (45.5-73.1); Platelet Count Result 200 k/mm3 (150-375); Red Blood Count 4.37 M/mm3 (4.2-5.4); Red Cell Distribution Width 14.8 % (11.5-14.5)
[2021-09-10 14:44] LABS: Glucose Point of Care 97 mg/dl (65-105)
[2021-09-10 14:48] LABS: Alanine Aminotransferase 17 U/L (4-35); Albumin Level 4.2 g/dL (3.5-5.1); Alkaline Phosphatase 109 U/L (38-126); Anion Gap 10 mmol/L (8-16); Aspartate Amino Transferase 53 U/L (14-36); Bilirubin,Total 0.6 mg/dL (0.2-1.3); Blood Urea Nitrogen 13 mg/dL (7-17); Calcium 8.4 mg/dL (8.4-10.2); Carbon Dioxide 22 mmol/L (22-30); Chloride 104 mmol/L (98-107); Estimated CRCL calculation 71 ml/min; Estimated Glomerular Filt Rate > 60; Glucose 84 mg/dL (65-110); Potassium 4.1 mmol/L (3.4-5.0); Sodium 136 mmol/L (137-145)
--- NOTE | 2021-09-10 15:39 | ED.GENADULT ---
HPI - General Adult General Chief complaint: Dizziness Stated complaint: rapid response from U/S, dizzy Time Seen by Provider: 09/10/21 15:18 Source: patient Limitations: no limitations History of Present Illness HPI narrative: 56-year-old female present to the emergency department for evaluation after having a an episode of lightheadedness and near syncope in the radiology waiting room while awaiting an ultrasound. Patient states while she was sitting in the waiting room she felt like she was going to pass out. Patient states she did not actually pass out. Patient reports over the course of the last few months she has had worsening fatigue. Patient has had follow-up with her primary care physician and does have extensive follow-up ordered. Patient states that she did have multiple nodules associated with her thyroid that she was going to have ultrasound today. She reports he does have a family history of thyroid disease. Related Data Home Medications Medication Instructions Recorded Confirmed budesonide-formoterol [Symbicort] 2 puff INHALATION BID 10/01/19 12/30/19 clonazepam 0.5 mg PO BID PRN 10/01/19 12/30/19 ipratropium-albuterol 3 ml INHALATION Q4-6H PRN 10/01/19 12/30/19 omeprazole 20 mg PO DAILY 10/01/19 12/30/19 valsartan-hydrochlorothiazide 0.5 tablet PO DAILY 10/01/19 12/30/19 Rolaids 2 tablet PO Q6H PRN 12/30/19 12/30/19 albuterol sulfate 2 inh INHALATION QAM PRN 12/30/19 12/30/19 ibuprofen 200 mg PO Q8H PRN 12/30/19 12/30/19 pantoprazole 20 mg PO DAILY 12/30/19 12/30/19 Allergies Allergy/AdvReac Type Severity Reaction Status Date / Time fluticasone Allergy Mild HIVES Verified 08/22/21 13:56 salmeterol Allergy Mild HIVES Verified 08/22/21 13:56 Sulfa (Sulfonamide Allergy Mild hives Verified 08/22/21 13:56 Antibiotics) clindamycin AdvReac Rash Verified 08/22/21 13:56 codeine AdvReac Vomiting Verified 08/22/21 13:56 vancomycin AdvReac Redness of Verified 08/22/21 13:56 Skin Review of Systems Review of Systems: CONSTITUTIONAL: Generalized fatigue EYES: Denies visual changes, redness, or discharge. ENT: Denies rhinorrhea, congestion, sore throat, or otalgia. CARDIOVASCULAR: Denies chest pain, palpitations, or edema. RESPIRATORY: Denies cough or dyspnea. GASTROINTESTINAL: Denies abdominal pain, nausea, vomiting, or diarrhea. GENITOURINARY: Denies dysuria or hematuria. SKIN: Denies rash or itching. MUSCULOSKELETAL: Denies back pain, joint pain, or myalgia. NEUROLOGIC: Denies headache, numbness, or weakness. Near syncope today All systems reviewed & are unremarkable except as noted in HPI and below PMFSH Past Medical History Medical History (Updated 09/10/21 @ 18:05 by Tariq Jiang MD) Anxiety Anxiety about blushing Asthma Bronchitis COPD (chronic obstructive pulmonary disease) GERD (gastroesophageal reflux disease) Hypertension Surgical History Surgical History (System 08/22/21 @ 13:56 by Chanda Dumont) H/O sinus surgery Hx of breast implants, bilateral Previous section Family History Family History (System 08/22/21 @ 13:56 by Chanda Dumont) Father Lung cancer Mother Kidney failure Social History Social History (System 08/22/21 @ 13:56 by Chanda Dumont) Years smoked: 35 Smoking status: Current some day smoker Tobacco type: cigarettes Additional smoking assessment comments: 5 cigarettes per month NOT per day Alcohol intake: current Drinks per week: 3 Substance use: former Substance use type: marijuana Other substance usage details: when she was 13 Gender identity (if verbalized by the patient): Female Spiritual care concerns: No Exam Narrative: APPEARANCE: Well appearing, no pain, no distress, well-nourished. HEAD: normocephalic, atraumatic. EYES: PERRLA/EOMI, conjunctivae clear. NOSE: Normal no drainage EARS:TMS clear with good light reflex. THROAT: Pharynx clear, no exudate. NECK: Supple. No adenopathy, no masses. RESPIRATO
[2021-09-10 16:14] LABS: D Dimer 0.66 ug/mL (<0.48)
[2021-09-10 16:36] LABS: Thyroid Stimulating Hormone Reflex 0.894 uIU/mL (0.465-4.68)
== END 2021-09-10 18:22 | disposition home or self-care (01) ==
PROVIDERS: Emergency Provider Emergency Medicine; PCP Emergency Medicine
DX: R55 Syncope and collapse (principal); I10 Essential (primary) hypertension; F41.9 Anxiety disorder, unspecified; J44.9 Chronic obstructive pulmonary disease, unspecified; K21.9 Gastro-esophageal reflux disease without esophagitis; F17.210 Nicotine dependence, cigarettes, uncomplicated; R00.0 Tachycardia, unspecified; R94.31 Abnormal electrocardiogram [ECG] [EKG]
CPT/HCPCS: 36415; 71275; 80053; 82948; 84443; 85025; 85380; 93005; 99284; Q9967

== ENCOUNTER 2021-09-27 11:59 | Outpatient (CLI) | payer MEDICARE, MEDICAID, SELFPAY ==
--- NOTE | ~2021-09-27 | XR_ITS ---
EXAMINATION: XR cervical spine 4-5V DATE: 09/27/2021 13:04 INDICATION: Chronic neck pain. TECHNIQUE: 5 views of cervical spine were obtained. COMPARISON: None. FINDINGS: Bone alignment is normal. Vertebral body heights are normal. There is mildly decreased disc height at C4-C5, C5-C6, and C6-C7. There is multilevel uncovertebral joint osteoarthritis, severe on the left at C4-C5, C5-C6, and C6-C7. The facet joints are unremarkable. No central canal stenosis or prevertebral soft tissue swelling. IMPRESSION: 1. Mild cervical spondylosis. Reviewed, dictated and finalized at location A.
--- NOTE | ~2021-09-27 | XR_ITS ---
XR lumbar spine 2-3V 09/27/2021 13:04 Indication: Back pain Procedure: 3 views of the lumbar spine Comparison: No prior studies for comparison. Findings: There is normal lumbar lordosis. Vertebral body heights are maintained. There is mild disc narrowing at L5-S1. No fracture, subluxation or dislocation. No evidence for spondylolisthesis. Pedic les intact. Sacral foramen are symmetric. Impression: 1: Mild lumbar spondylosis. Reviewed, dictated and finalized at location B. Impression: 1: Mild lumbar spondylosis.
--- NOTE | ~2021-09-27 | XR_ITS ---
EXAMINATION: XR thoracic spine 3V DATE: 09/27/2021 13:04 INDICATION: Thoracic back pain TECHNIQUE: AP, lateral and lateral swimmer's views of the thoracic spine were obtained. COMPARISON: None. FINDINGS: Bone alignment is normal. There is no fracture. The vertebral body heights are maintained. There is loss of intervertebral disc space height at multiple levels in the thoracic spine. Small deg enerative osteophytes project from the anterior endplates of multiple vertebral bodies. IMPRESSION: 1. Moderate thoracic spondylosis without acute findings. Reviewed, dictated and finalized at location A.
== END 2021-09-27 12:00 | disposition home or self-care (01) ==
LOC: ANHIMG 12:03
PROVIDERS: PCP Emergency Medicine; Visit Provider Emergency Medicine
DX: R20.0 Anesthesia of skin (principal); M47.894 Other spondylosis, thoracic region; M47.892 Other spondylosis, cervical region; M47.896 Other spondylosis, lumbar region
CPT/HCPCS: 72050; 72072; 72100

== ENCOUNTER 2021-12-05 17:28 | Emergency (ER) | payer MEDICARE, MEDICAID, SELFPAY ==
[2021-12-05 17:44] VITALS: BP 113/76; PULSE 95; RESP 16; TEMP 37; O2SAT 97
--- NOTE | 2021-12-05 17:44 | ED.SKABFB ---
HPI - Skin/Abscess/Foreign Bdy General Chief complaint: Skin/Abscess/Foreign Body Stated complaint: non healing wounds right arm Time Seen by Provider: 12/05/21 17:45 Source: patient and RN notes reviewed Mode of arrival: ambulatory Limitations: no limitations History of Present Illness HPI narrative: 56-year-old female presents to the [facility] with a skin tear to the right dorsal forearm. Patient states that occurred 2 days ago when a piece of wood from a banister jumped up hit her arm causing the skin tear. Patient denies falling. Patient is also concerned that whenever anything touches her that bruises formed. Patient states that she saw her primary care provider who suggested she go to the ER for the multiple bruising's. Patient states she refuses to go to the ER because she had a sit and wait 5 hours last time she was there while having a heart attack. Tetanus up to date: unsure Related Data Home Medications Medication Instructions Recorded Confirmed budesonide-formoterol HFA 160 2 puff inhalation BID 10/01/19 12/05/21 mcg-4.5 mcg/actuation aerosol inhaler (Symbicort) clonazepam 0.5 mg tablet 0.5 mg PO BID PRN Anxiety 10/01/19 12/05/21 ipratropium 0.5 mg-albuterol 3 mg 3 ml inhalation Q4-6H PRN 10/01/19 12/05/21 (2.5 mg base)/3 mL nebulization Shortness Of Breath soln omeprazole 20 mg capsule,delayed 20 mg PO DAILY 10/01/19 12/05/21 release albuterol sulfate 90 mcg/actuation 90 mcg inhalation DIRECTED 12/05/21 12/05/21 aerosol inhaler (Ventolin HFA) losartan 25 mg tablet 25 mg DIRECTED 12/05/21 12/05/21 Allergies Allergy/AdvReac Type Severity Reaction Status Date / Time fluticasone Allergy Mild HIVES Verified 08/22/21 13:56 salmeterol Allergy Mild HIVES Verified 08/22/21 13:56 Sulfa (Sulfonamide Allergy Mild hives Verified 08/22/21 13:56 Antibiotics) clindamycin AdvReac Rash Verified 08/22/21 13:56 codeine AdvReac Vomiting Verified 08/22/21 13:56 vancomycin AdvReac Redness of Verified 08/22/21 13:56 Skin Review of Systems Review of Systems: All systems reviewed & are unremarkable except as noted in HPI and below Constitutional: Constitutional: Reports no additional constitutional complaints, Denies chills and Denies fever(s) Eyes: Eyes: Reports no additional eye complaints ENT: Reports system reviewed and no additional complaints, except as documented Cardiovascular: Cardiovascular: Reports no additional cardiovascular complaints Respiratory: Respiratory: Reports no additional respiratory complaints Gastrointestinal: Gastrointestinal: Reports no additional gastrointestinal complaints Musculoskeletal: Musculoskeletal: Reports no additional musculoskeletal complaints Integumentary/Breasts: Skin/Breast: Reports as per HPI Neurologic: Reports system reviewed and no additional complaints, except as documented Psychiatric: Psychiatric: Reports no additional psychiatric complaints Allergic/Immunologic: Allergic/Immunologic: Reports no additional allergic/immunologic complaints [facility] Past Medical History Medical History Anxiety Anxiety about blushing Asthma Bronchitis COPD (chronic obstructive pulmonary disease) GERD (gastroesophageal reflux disease) Hypertension Surgical History Surgical History H/O sinus surgery Hx of breast implants, bilateral Previous section Family History Family History Father Lung cancer Mother Kidney failure Social History Social History Years smoked: 35 Smoking status: Current some day smoker Tobacco type: cigarettes Additional smoking assessment comments: 5 cigarettes per month NOT per day Alcohol intake: current Drinks per week: 3 Substance use: former Substance use type: amber
[2021-12-05] MEDS: TETANUS,DIPHTHERIA,AC PERTUSSIS ADULT (0.5 ML) BOOSTRIX IM (18:07)
== END 2021-12-05 18:37 | disposition home or self-care (01) ==
PROVIDERS: Emergency Provider Nurse Practitioner; PCP Emergency Medicine
DX: S51.811A Laceration without foreign body of right forearm, initial encounter (principal); W22.8XXA Striking against or struck by other objects, initial encounter; Z23 Encounter for immunization; J44.9 Chronic obstructive pulmonary disease, unspecified; K21.9 Gastro-esophageal reflux disease without esophagitis; I10 Essential (primary) hypertension; F17.210 Nicotine dependence, cigarettes, uncomplicated
CPT/HCPCS: 90471; 90715; 99212; G0463

== ENCOUNTER 2021-12-17 17:39 | Observation (INO) | payer MEDICARE, MEDICAID, SELFPAY ==
[2021-12-17 17:50] VITALS: BP 135/84; PULSE 116; RESP 18; TEMP 37; O2SAT 92
--- NOTE | 2021-12-17 18:28 | PC.NURSE ---
Patient's belongings locked in secure area and security walked patient's money to security office due to amount patient has in purse. Patient, security and this RN counted money together.
--- NOTE | 2021-12-17 18:29 | PC.NURSE ---
Patient unable to given urine, demanding water at this time.
[2021-12-17 18:52] LABS: Basophils Absolute Auto 0.1 K/mm3 (0.0-0.1); Eosinophils Absolute Auto 0.1 K/mm3 (0-0.3); Eosinophils Percent Auto 0.6 % (0-4.4); Hematocrit 39.8 % (37.0-47.0); Hemoglobin 13.3 g/dL (12.0-15.0); Immature Granulocyte Absolute 0.05 K/mm3 (0.00-0.031); Immature Granulocyte Percent A 0.6 % (0-0.5); Lymphocytes Absolute Auto 1.59 K/mm3 (0.9-3.2); Lymphocytes Percent Auto 20.6 % (18.3-44.2); Mean Corpuscular HGB Conc 33.4 g/dl (32-36); Mean Corpuscular Hemoglobin 32.9 pg (26-34); Mean Corpuscular Volume 98.5 fl (80-100); Mean Platelet Volume 9.1 fl (7.4-10.4); Monocytes Absolute Auto 0.7 K/mm3 (0.1-0.6); Monocytes Percent Auto 9.1 % (2.6-8.5); Neutrophils Absolute Auto 5.3 K/mm3 (1.3-6.7); Neutrophils Percent Auto 68.1 % (45.5-73.1); Platelet Count Result 254 k/mm3 (150-375); Red Blood Count 4.04 M/mm3 (4.2-5.4); Red Cell Distribution Width 16.1 % (11.5-14.5); White Blood Count 7.7 K/mm3 (4.5-10.0)
[2021-12-17 19:03] LABS: Alanine Aminotransferase 31 U/L (6-35); Albumin Level 3.8 g/dL (3.5-5.1); Alkaline Phosphatase 123 U/L (38-126); Anion Gap 11 mmol/L (8-16); Aspartate Amino Transferase 65 U/L (14-36); Bilirubin,Total 0.6 mg/dL (0.2-1.3); Blood Urea Nitrogen 14 mg/dL (7-17); Calcium 8.6 mg/dL (8.4-10.2); Carbon Dioxide 24 mmol/L (22-30); Chloride 107 mmol/L (98-107); Estimated CRCL calculation 73 ml/min; Estimated Glomerular Filt Rate > 60; Glucose 120 mg/dL (65-110); Sodium 142 mmol/L (137-145)
[2021-12-17 19:04] LABS: Amphetamine Screen Urine Negative (Negative); Barbiturate Screen Urine Negative (Negative); Benzodiazepines Screen Urine Positive (Negative); Cannabinoid Screen Urine Negative (Negative); Cocaine Screen Urine Negative (Negative); Methadone Screen Urine Negative (Negative); Opiate Screen Urine Negative (Negative); Phencyclidine Screen Urine Negative (Negative)
--- NOTE | 2021-12-17 19:26 | PC.NURSE ---
assumed care of pt at this time. Pt resting on stretcher, sitter at bedside
[2021-12-17 19:34] LABS: Thyroid Stimulating Hormone 0.782 uIU/mL (0.465-4.680)
[2021-12-17 20:09] LABS: Appearance Urine Clear (Clear); Bilirubin Urine Negative (Negative); Blood Urine Negative (Negative); Color Urine Yellow (Yellow); Glucose Urine UA Negative (Negative); Ketones Urine Negative (Negative); Leukocyte Esterase Ur Negative LEU/UL (Negative); Nitrate Urine Negative (Negative); Protein Urine Negative (Negative); Specific Grav Ur 1.015 (1.001-1.035); Urobilinogen Urine 0.2 mg/dL (<2.0); pH Urine 5.5 (5.0-9.0)
[2021-12-17 20:10] LABS: Add Urine Microscopic? NO
[2021-12-17 20:42] LABS: SARS-CoV-2 RNA PCR Negative
[2021-12-17 20:56] LABS: Ethanol 324 mg/dL (<10)
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
[2021-12-17] MEDS: IPRATROPIUM BR 0.02% INH SOLN 0.5 MG/2.5 ML VIAL INHALATION (21:30)
[2021-12-17] MEDS: ALBUTEROL SULFATE NEB 2.5 MG/3 ML INH 5 MG INHALATION (21:30)
[2021-12-17 21:34] VITALS: PULSE 94; RESP 18
[2021-12-17 21:41] VITALS: PULSE 102; RESP 18
[2021-12-18] VITALS (11 sets, daily range): BP systolic 136–159; BP diastolic 84–93; PULSE 94–118; RESP 16–26; TEMP 36.6–36.9; O2SAT 94–99; BMI 23.8
[2021-12-18] MEDS: FLUTICASONE/SALMETEROL 115-21 MCG INHALER 1 PUFF 2 PUFF INHALATION ×3 (03:41→19:44)
[2021-12-18 06:13] LABS: Ethanol 138 mg/dL (<10)
--- NOTE | 2021-12-18 07:09 | PC.NURSE ---
SI precaution breakfast tray ordered at 0707
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
[2021-12-18 10:20] LABS: Ethanol 59 mg/dL (<10)
[2021-12-18] MEDS: PANTOPRAZOLE SOD SESQUIHYDRATE 20 MG TAB PO (10:21)
--- NOTE | 2021-12-18 11:49 | PC.NURSE ---
called crisis center at 1149 for evaluation
--- NOTE | 2021-12-18 12:03 | PC.NURSE ---
spoke with Lin from crisis about evaluation. states she will be out this afternoon for interview
--- NOTE | 2021-12-18 12:14 | PC.NURSE ---
spoke with Mau from case management. states he will come give resources.
[2021-12-18] MEDS: IPRATROPIUM BR 0.02% INH SOLN 0.5 MG/2.5 ML VIAL INHALATION (14:06)
[2021-12-18] MEDS: ALBUTEROL SULFATE NEB 2.5 MG/3 ML INH INHALATION (14:07)
[2021-12-18] MEDS: SODIUM CHLORIDE 0.9% IV 1,000 ML 125 ML IV CONT ×2 (15:15→21:26)
[2021-12-18] MEDS: LORazepam INJ (*CRX) 2 MG/ML VIAL 1 MG IV PUSH (15:15)
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
--- NOTE | 2021-12-18 16:57 | ADMGEN ---
This patient, Chary Rodriguez, was admitted to IMU Room 204-01. Patient/family oriented to hospital policies and general routines including ID bracelet, bed and alarms, visiting hours, pain management, procedures, bathroom and other care routines, personal items, smoking policy, room service/diet, and visiting hours. Information on how to activate the Rapid Response Team has been discussed. Patient/Family are encouraged to report perceived risks to care and to ask questions if they do not understand what they are told or what they should do.
[2021-12-18] MEDS: chlordiazePOXIDE (*CRX) 25 MG CAPSULE PO ×2 (18:10→21:26)
[2021-12-18 18:15] LABS: Glucose Point of Care 133 mg/dl (65-105)
[2021-12-18] MEDS: LEVALBUTEROL NEB 1.25 MG/3 ML 0.63 MG INHALATION (19:44)
[2021-12-18] MEDS: FAMOTIDINE 20 MG/2 ML VIAL IV PUSH (21:26)
[2021-12-19] VITALS (15 sets, daily range): BP systolic 127–168; BP diastolic 88–109; PULSE 65–118; RESP 14–20; TEMP 36.1–36.7; O2SAT 95–98; BMI 24.3
[2021-12-19 00:51] LABS: Glucose Point of Care 121 mg/dl (65-105)
--- NOTE | 2021-12-19 02:10 | PCRCNOTE ---
PT REFUSING 0200 UPD. PT STATED THAT THEY WILL NOT BE ABLE TO SLEEP FOR THE REST OF THE NIGHT IF THEY TAKE UPD. RT LISTENED TO PT WHERE SLIGHT END EXP WHEEZES WERE HEARD. PT STILL REFUSING UPD. RT ADVISED PT TO CALL IF IN NEED OF TREATMENT. RN INFORMED.
--- NOTE | 2021-12-19 02:30 | PC.NURSE ---
patient is refusing to wear bipap
[2021-12-19 05:27] LABS: Basophils Absolute Auto 0.1 K/mm3 (0.0-0.1); Basophils Percent Auto 1.1 % (0.2-1.2); Eosinophils Absolute Auto 0.2 K/mm3 (0-0.3); Eosinophils Percent Auto 2.7 % (0-4.4); Hematocrit 36.7 % (37.0-47.0); Hemoglobin 12.1 g/dL (12.0-15.0); Immature Granulocyte Absolute 0.03 K/mm3 (0.00-0.031); Immature Granulocyte Percent A 0.5 % (0-0.5); Lymphocytes Percent Auto 36.1 % (18.3-44.2); Mean Corpuscular Hemoglobin 32.7 pg (26-34); Mean Corpuscular Volume 99.2 fl (80-100); Mean Platelet Volume 9.5 fl (7.4-10.4); Monocytes Absolute Auto 0.5 K/mm3 (0.1-0.6); Monocytes Percent Auto 9.4 % (2.6-8.5); Neutrophils Absolute Auto 2.8 K/mm3 (1.3-6.7); Neutrophils Percent Auto 50.2 % (45.5-73.1); Platelet Count Result 204 k/mm3 (150-375); Red Cell Distribution Width 15.9 % (11.5-14.5); White Blood Count 5.5 K/mm3 (4.5-10.0)
[2021-12-19] MEDS: SODIUM CHLORIDE 0.9% IV 1,000 ML 125 ML IV CONT (05:38)
[2021-12-19] MEDS: chlordiazePOXIDE (*CRX) 25 MG CAPSULE PO ×2 (05:38→15:16)
[2021-12-19 05:49] LABS: Anion Gap 4 mmol/L (8-16); Blood Urea Nitrogen 5 mg/dL (7-17); Carbon Dioxide 31 mmol/L (22-30); Chloride 103 mmol/L (98-107); Estimated CRCL calculation 81 ml/min; Estimated Glomerular Filt Rate > 60; Glucose 110 mg/dL (65-110); Magnesium 1.4 mg/dL (1.6-2.3); Sodium 138 mmol/L (137-145)
[2021-12-19] MEDS: LEVALBUTEROL NEB 1.25 MG/3 ML 0.63 MG INHALATION ×2 (08:28→20:29)
[2021-12-19] MEDS: FLUTICASONE/SALMETEROL 115-21 MCG INHALER 1 PUFF 2 PUFF INHALATION ×2 (08:29→20:29)
[2021-12-19] MEDS: FAMOTIDINE 20 MG/2 ML VIAL IV PUSH ×2 (08:59→21:13)
[2021-12-19] MEDS: FOLIC ACID 1 MG TABLET PO (08:59)
[2021-12-19] MEDS: MAGNESIUM SULF 2 GM/WATER 50ML 2 GM/50 ML BAG IVPB (11:58)
[2021-12-19] MEDS: POTASSIUM CHLORIDE 20 MEQ TABLET 40 MEQ PO (11:58)
--- NOTE | 2021-12-19 12:47 | PC.NURSE ---
This patient, Chary Rodriguez, was transferred to [[id number]] on 12/19/21 at 1247. Personal belongings sent with patient. Report given to [JESSE Cedillo @ [phone] ]. Appropriate documentation sent with patient.
[2021-12-19] MEDS: NEOMYCIN/POLYMYXIN/BACITRACIN OINTMENT 15 GM TUBE 1 APPLIC TOPICAL (17:51)
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
[2021-12-19] MEDS: chlordiazePOXIDE (*CRX) 10 MG CAPSULE PO (21:13)
[2021-12-20] MEDS: LEVALBUTEROL NEB 1.25 MG/3 ML 0.63 MG INHALATION ×2 (02:11→09:04)
[2021-12-20 02:12] VITALS: PULSE 89; RESP 18
[2021-12-20 02:25] VITALS: PULSE 94; RESP 18
[2021-12-20] MEDS: chlordiazePOXIDE (*CRX) 10 MG CAPSULE PO (06:09)
[2021-12-20 06:23] VITALS: BP 149/92; PULSE 92; RESP 20; TEMP 35.9; O2SAT 98
[2021-12-20] MEDS: NEOMYCIN/POLYMYXIN/BACITRACIN OINTMENT 15 GM TUBE 1 APPLIC TOPICAL (08:26)
[2021-12-20] MEDS: FOLIC ACID 1 MG TABLET PO (08:26)
[2021-12-20] MEDS: FAMOTIDINE 20 MG/2 ML VIAL IV PUSH (08:26)
[2021-12-20 09:00] VITALS: PULSE 120; RESP 20; O2SAT 97
[2021-12-20 09:08] VITALS: PULSE 93; RESP 20
[2021-12-20 14:00] VITALS: BP 157/97; PULSE 83; RESP 18; TEMP 36.6; O2SAT 100
--- NOTE | 2021-12-20 14:07 | PC.NURSE ---
Belongings removed from floor safe and returned to patient with this nurse and floor RN present. Two envelopes of money returned and counted and verified with floor RN in front of patient. Kilpatrick removed including $57.00 and returned. Additional envelope containing $4,700 counted in front of patient with this nurse present and floor RN and kilpatrick returned to patient and patient placed kilpatrick in her purse.
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
== END 2021-12-20 14:33 | disposition home or self-care (01) ==
LOC: ANHED 12-18 13:52 → ANHIMU 12-18 15:40 → ANH3MEDSUR 12-19 13:00
PROVIDERS: Emergency Medicine; Admitting Provider Family Medicine; Emergency Provider Family Medicine; Visit Provider Internal Medicine
DX: F32.A Depression, unspecified (principal); R45.851 Suicidal ideations; J44.9 Chronic obstructive pulmonary disease, unspecified; F41.9 Anxiety disorder, unspecified; K21.9 Gastro-esophageal reflux disease without esophagitis; I10 Essential (primary) hypertension; R25.1 Tremor, unspecified; Z98.82 Breast implant status; F17.210 Nicotine dependence, cigarettes, uncomplicated; Z20.822 Contact with and (suspected) exposure to COVID-19; Z59.02 Unsheltered homelessness; F10.239 Alcohol dependence with withdrawal, unspecified; Z79.51 Long term (current) use of inhaled steroids; Z79.899 Other long term (current) drug therapy
CPT/HCPCS: 36415; 80048; 80053; 80307; 81003; 81025; 82948; 83735; 84443; 85025; 94640; 96361; 96365; 96375; 96376; 97161; 97165; 99285; A9270; C9803; G0378; J2060; J3475; J7030; U0003; U0005

== ENCOUNTER 2022-05-08 08:12 | Outpatient (CLI) | payer MEDICARE, MEDICAID, SELFPAY ==
--- NOTE | ~2022-05-08 | US_ITS ---
EXAMINATION: US venous doppler [facility] DATE: 05/08/2022 09:25 INDICATION: Bilateral lower limb pain TECHNIQUE: Grayscale ultrasound images without and with compression and Doppler ultrasound images of the bilateral lower extremity veins were obtained. COMPARISON: None. FINDINGS: The visualized portions of right common femoral vein, profunda (deep) femoral vein, femoral vein, pop liteal vein, posterior tibial veins, peroneal veins, gastrocnemius vein and greater saphenous vein ou tflow are patent. The visualized portions of left common femoral vein, profunda femoral vein, femoral vein, popliteal v ein, posterior tibial veins, peroneal veins, gastrocnemius vein and greater saphenous vein outflow ar e patent. IMPRESSION: 1. No deep venous thrombosis in either lower limb. Reviewed, dictated and finalized at location A. ER W[facility] LOOM
--- NOTE | ~2022-05-08 | US_ITS ---
EXAMINATION: US art doppler w press LE BI DATE: 05/08/2022 09:24 INDICATION: Bilateral lower limb pain. TECHNIQUE: Segmental pressures and plethysmographic and Doppler waveforms of the brachial and lower e xtremity arteries were obtained. COMPARISON: None. FINDINGS: Right and left brachial artery pressures of 158 mm Hg and 162 mm Hg, respectively, are concordant (no rmal difference <= 30 mmHg). The right and left high-thigh pressure indices are 1.05 and 1.10, respec tively (normal > 1.2). The right ankle-brachial index (MATTHEW) is 1.13 (normal >= 0.9-1). The right great toe-brachial index (T BI) is 0.92 (normal >= 0.6-0.8). The right lower extremity segmental pressure gradients are normal (n ormal gradients <= 20-30 mmHg between adjacent levels on the same leg or the same levels on the two l egs). Arterial waveforms are biphasic with brisk systolic upstrokes throughout the arteries of the ri ght lower limb. The left MATTHEW is 1.04. The left TBI is 0.84. The left lower extremity segmental pressure gradients are mildly increased between the left [id number]-[id number] popliteal artery and the left dorsalis pedis artery . Arterial waveforms are biphasic with brisk systolic upstrokes throughout the arteries of the left l ower limb. IMPRESSION: 1. Normal MATTHEW's and TBI's bilaterally. No significant occlusive disease. Reviewed, dictated and finalized at location A. ER AND CASHIER
--- NOTE | ~2022-05-08 | XR_ITS ---
Left ankle Technique: AP, oblique, and lateral views were obtained. Clinical History: Pain Findings: No acute fracture or dislocation is seen. Osseous alignment is anatomic. Ankle mortise and other visualized joint spaces are preserved. Soft tissues are otherwise unremarkable. Impression: Unremarkable left ankle. Reviewed, dictated and finalized at location . NO SUPERVISOR Impression: Unremarkable left ankle.
--- NOTE | ~2022-05-08 | XR_ITS ---
AP and lateral views of the left tibia/fibula Clinical History: Pain Findings: No acute fracture or dislocation is seen. Osseous alignment is anatomic. Joint spaces are p reserved without significant erosive or degenerative change. Soft tissues are unremarkable. Impression: Unremarkable left tib-fib radiographs. Reviewed, dictated and finalized at [facility]. GER DOMESTIC Impression: Unremarkable left tib-fib radiographs.
--- NOTE | ~2022-05-08 | XR_ITS ---
AP and lateral views of the right tibia/fibula Clinical History: Pain Findings: No acute fracture or dislocation is seen. Osseous alignment is anatomic. Joint spaces are p reserved without significant erosive or degenerative change. Soft tissues are unremarkable. Impression: Unremarkable right tib-fib radiographs. Reviewed, dictated and finalized at [facility]. UNITY OUTREACH SPECIALIST Impression: Unremarkable right tib-fib radiographs.
--- NOTE | ~2022-05-08 | XR_ITS ---
Right ankle Technique: AP, oblique, and lateral views were obtained. Clinical History: Pain Findings: No acute fracture or dislocation is seen. Osseous alignment is anatomic. Ankle mortise and other visualized joint spaces are preserved. Soft tissues are otherwise unremarkable. Impression: Unremarkable right ankle. Reviewed, dictated and finalized at location . ING MACHINE OPERATOR Impression: Unremarkable right ankle.
== END 2022-05-08 08:13 | disposition home or self-care (01) ==
PROVIDERS: PCP Emergency Medicine; Visit Provider Emergency Medicine
DX: M25.571 Pain in right ankle and joints of right foot (principal); M25.572 Pain in left ankle and joints of left foot; M79.661 Pain in right lower leg; M79.662 Pain in left lower leg; R22.43 Localized swelling, mass and lump, lower limb, bilateral; M79.606 Pain in leg, unspecified
CPT/HCPCS: 73590; 73610; 93923; 93970